=== PATIENT | female | born 1980 | race Caucasian/White ===

== ENCOUNTER 2017-07-20 22:46 | Emergency (ER) | payer MEDICARE, MEDICAID ==
[2017-07-20] MEDS ORDERED: HYDROcodone/Acetaminophen 5/325 mg Tablet ONE (23:09)
[2017-07-20 23:30] LABS: PTT 32.4 SEC (22.9-36.1); Prothrombin Time 14.1 SEC (12.0-14.7)
[2017-07-20 23:36] LABS: Hematocrit 41.5 % (36.0-47.0); Mean Platelet Volume 7.8 fL (7.4-10.4); Neutrophil 29 % (42-75); Red Blood Cell (RBC) Count 4.55 mill/uL (4.20-5.40); White Blood Cell (WBC) Count 6.7 thou/uL (4.8-10.8)
[2017-07-20 23:40] LABS: Anion Gap 17 mmol/L (10-20); BUN (Urea Nitrogen) 12 mg/dL (7.0-18.7); Calc. Creatinine Clearance 0 mL/min (70-130); Carbon Dioxide 19 mmol/L (22-29); Chloride 102 mmol/L (98-107); Estimated GFR-MDRD Greater than 90
[2017-07-21] MEDS ORDERED: Ketorolac Tromethamine 30 MG/ML VIAL ONE (01:18)
--- NOTE | 2017-07-21 09:30 | RAD ---
CHEST 1 VIEW: HISTORY: Dyspnea. DVT. COMPARISON: 05/07/17. FINDINGS: Cardiac silhouette is magnified by projection. Pulmonary vasculature is unremarkable. Lungs remain hyperinflated with mild atelectasis of the right lung base. No lobar consolidation or pneumothorax are apparent. Postoperative changes of the cervicothoracic spine are evident. manager games gamaliel ds overlie the chest. IMPRESSION: Pulmonary hyperinflation and other chronic-type findings appear stable. POS: [facility]
--- NOTE | 2017-07-21 13:21 | ULT ---
PRELIMINARY REPORT/[facility]/EMERGENCY AFTER HOURS PROCEDURE: EXAM: US Duplex Left Lower Extremity Veins CLINICAL HISTORY: 36 years old, female; Signs and symptoms; Swelling of limb; Lower extremity, left TECHNIQUE: Real-time ultrasound scan of the veins of the left lower extremity with color Doppler flow, spectral waveform analysis and compression. COMPARISON: No relevant prior studies available. FINDINGS: Deep veins: Partial thrombosis of the distal popliteal and proximal anterior tibial and thrombosis o f the proximal posterior tibial and peroneal veins. Superficial veins: No acute findings. No thrombus in the visualized great saphenous vein. Soft tissues: Calf edema. IMPRESSION: Deep venous thrombosis in the left popliteal and calf veins. THIS REPORT CONTAINS FINDINGS THAT MAY BE CRITICAL TO PATIENT CARE. The findings were verbally commu nicated via telephone conference with Tete Mejía at 1:01 AM CDT on 07/21/2017. The findings w ere acknowledged and understood. Thank you for allowing us to participate in the care of your patient. Dictated and Authenticated by: Wyatt Schultz MD 07/21/2017 1:03 AM Central Time ([place] \T\ [place]) FINAL REPORT LEFT LOWER EXTREMITY VENOUS DUPLEX SONOGRAM: HISTORY: Left leg pain and edema. FINDINGS: Findings agree with the preliminary report by Dr. Schultz from [facility]. Partially occlusive thrombus is present within the popliteal vein and anterior tibial vein. Good color and spectral Do ppler flow are present within the common femoral vein and greater saphenous junction in the femoral and deep femoral veins. POS: [facility]
== END 2017-07-21 02:12 | disposition short-term general hospital (02) ==
LOC: ERS 22:46
DX: I82.432 Acute embolism and thrombosis of left popliteal vein (principal); F32.9 Major depressive disorder, single episode, unspecified; Z87.891 Personal history of nicotine dependence; Z79.891 Long term (current) use of opiate analgesic; Z79.899 Other long term (current) drug therapy
CPT/HCPCS: 36415; 71010; 80048; 85025; 85379; 85610; 85730; 96374; A4353; J1885

== ENCOUNTER 2017-10-07 20:34 | Emergency (ER) | payer MEDICARE, MEDICAID ==
[2017-10-07] MEDS ORDERED: Ondansetron ODT 4 MG TAB ONE (21:15)
[2017-10-07] MEDS ORDERED: HYDROcodone/Acetaminophen 5/325 mg Tablet ONE (21:15)
[2017-10-07 21:40] LABS: Hematocrit 39.2 % (36.0-47.0); Mean Platelet Volume 7.7 fL (7.4-10.4); Neutrophil 62 % (42-75); Red Blood Cell (RBC) Count 4.28 mill/uL (4.20-5.40); White Blood Cell (WBC) Count 7.3 thou/uL (4.8-10.8)
[2017-10-07 21:44] LABS: ALT (SGPT) 14 U/L (8-55); AST (SGOT) 14 U/L (5-34); Alkaline Phosphatase 67 U/L (40-150); Anion Gap 17 mmol/L (10-20); BUN (Urea Nitrogen) 12 mg/dL (7.0-18.7); Bilirubin, Total 0.6 mg/dL (0.2-1.2); Calc. Creatinine Clearance 0 mL/min (70-130); Calcium 9.8 mg/dL (7.8-10.44); Carbon Dioxide 18 mmol/L (22-29); Chloride 106 mmol/L (98-107); Estimated GFR-MDRD Greater than 90; Globulin 2.8 g/dL (2.4-3.5); Protein, Total 7.1 g/dL (6.0-8.3)
[2017-10-07 22:21] LABS: Bacteria/HPF Rare-Few HPF (None Seen); Bilirubin Small (Negative); Blood, Urine Moderate (Negative); Glucose, Urine (Dipstick) Negative (Negative); Hyaline Casts/LPF 0-3 HYALINE CAST LPF (0-3 Hyaline); Ketone, Urine Trace mg/dL (Negative); Nitrite Negative (Negative); Protein, Urine (Dipstick) 100 mg/dL (Neg-Trace); Renal Epithelial 0-3 HPF (0-3); Squamous Epithelial 0-3 HPF (0-3); Transitional Epithelial 0-3 HPF (0-3)
[2017-10-07] MEDS ORDERED: Fentanyl 100 MCG/2 ML VIAL ONE (23:57)
[2017-10-07] MEDS ORDERED: Sodium Chloride 0.9% 100 ML ONE (23:57)
[2017-10-07] MEDS ORDERED: cefTRIAXone\\ROCEPHIN 1 GM VIAL ONE (23:57)
--- NOTE | 2017-10-08 00:03 | CT ---
CT ANGIOGRAM OF THE ABDOMEN INCLUDING 3D RENDERING: History: 37-year-old female with musculoskeletal disorder, paralyzed from chest down, low blood pressure, abdo daily pain. Patient has a urostomy and colostomy. FINDINGS: The lung bases are clear. Status post cholecystectomy. Liver, pancreas, spleen, and adrenal glands ar e unremarkable. There is some focal opacification within the upper renal collecting systems, this may just represent some early contrast concentration, nonobstructing renal calculi cannot be excluded. T here is a normal appearing abdominal aorta including bifurcation and proximal iliac arteries. There i s an IVC filter noted in place. There is also a vascular stent which appears to involve the left yamilet c vein. Left anterior abdominal wall ostomy site. Foci of minimal subcutaneous increased density and gas noted in the subcutaneous tissues of the lateral abdominal wall bilaterally at the level of the u mbilicus. The etiology of these is uncertain. They may be from prior injection sites. The celiac, sup erior mesenteric artery and inferior mesenteric artery, and renal arteries appear unremarkable. IMPRESSION: Normal appearing abdominal aorta and branches. Status post cholecystectomy without ductal dilatation. There is some increased density in the upper renal collecting systems, either some early contrast co ncentration versus some nonobstructing renal calculi, but no evidence for obstruction. Left iliac venous stent. Left anterior abdominal wall ostomy site. Two foci of increased density and some air de nsity within the anterior subcutaneous fat of the right and left anterior abdominal wall at the level of the umbilicus of uncertain etiology. POS: [facility]
== END 2017-10-08 00:48 | disposition home or self-care (01) ==
LOC: SCSER 20:34
DX: N39.0 Urinary tract infection, site not specified (principal); F32.9 Major depressive disorder, single episode, unspecified
CPT/HCPCS: 36415; 74175; 80053; 81003; 81015; 84703; 85025; 87086; 96365; 96375; J0696; J3010; J7050; Q0162

== ENCOUNTER 2017-10-28 12:39 | Emergency (ER) | payer MEDICARE, MEDICAID ==
[2017-10-28] MEDS ORDERED: Lorazepam 2 MG/ML VIAL ONE (13:58)
[2017-10-28 14:27] LABS: Bilirubin Negative (Negative); Blood, Urine Negative (Negative); Clarity CLEAR (Clear); Glucose, Urine (Dipstick) Negative (Negative); Leukocyte Negative (Negative); Nitrite Negative (Negative); Protein, Urine (Dipstick) 30 mg/dL (Neg-Trace); Specific Gravity, Urine 1.011 (1.002-1.036); Urobilinogen 0.2 mg/dL (0.2-1.0)
[2017-10-28 14:31] LABS: Bacteria/HPF Rare-Few HPF (None Seen); Hyaline Casts/LPF 0-3 HYALINE CAST LPF (0-3 Hyaline); Pathc Cast-AUWi Flag 0.27 (0-2.49); WBC/HPF 0-3 HPF (0-3)
[2017-10-28 14:59] LABS: RBC/HPF 0-3 HPF (0-3); Renal Epithelial 0-3 HPF (0-3); Transitional Epithelial 0-3 HPF (0-3)
== END 2017-10-28 16:10 | disposition home or self-care (01) ==
LOC: ERS 12:39
DX: I10 Essential (primary) hypertension (principal)
CPT/HCPCS: 81003; 81015; 96372; J2060

== ENCOUNTER 2018-05-08 11:30 | Emergency (ER) | payer MEDICARE, MEDICAID ==
[2018-05-08 12:23] LABS: #Basophils 0.1 thou/uL (0.0-0.2); #Eosinphils 0.1 thou/uL (0.0-0.7); #Lymphocytes 2.3 thou/uL (1.20-3.40); #Monocytes 0.4 thou/uL (0.11-0.59); #Neutrophils 3.5 thou/uL (1.40-6.50); %Basophils 1.5 % (0.0-1.0); %Eosinophils 1.6 % (0.0-10.0); %Lymphocytes 36.2 % (21.0-51.0); %Monocytes 5.8 % (0.0-10.0); %Neutrophils 54.9 % (42.0-75.0); Hemoglobin 12.1 g/dL (12.0-16.0); Mean Corpuscular Hemoglobin 29.7 pg (27.0-31.0); Mean Corpuscular Volume 87.4 fL (78.0-98.0); Mean Platelet Volume 9.3 fL (7.4-10.4); Platelet Count 201 thou/uL (130-400); RBC Distribution Width 11.5 % (11.5-14.5); Red Blood Cell (RBC) Count 4.07 mill/uL (4.20-5.40); White Blood Cell (WBC) Count 6.3 thou/uL (4.8-10.8)
[2018-05-08 12:24] LABS: Bilirubin Negative (Negative); Blood, Urine Small (Negative); Clarity Clear (Clear); Glucose, Urine (Dipstick) Negative (Negative); Leukocyte Negative (Negative); Nitrite Negative (Negative); Protein, Urine (Dipstick) 30 mg/dL (Neg-Trace); Specific Gravity, Urine 1.025 (1.005-1.030); Urobilinogen 0.2 mg/dL (0.2-1.0)
[2018-05-08 12:30] LABS: BHCG - Serum Negative (NEGATIVE); Pregs Control Background? CLEAR/WHITE (CLR/WHITE); Pregs Control Bar Appear? YES (CONTROL BAR)
[2018-05-08 12:35] LABS: ALT (SGPT) 17 U/L (8-55); AST (SGOT) 15 U/L (5-34); Albumin 4.4 g/dL (3.5-5.0); Alkaline Phosphatase 70 U/L (40-150); Anion Gap 13 mmol/L (10-20); BUN (Urea Nitrogen) 14 mg/dL (7.0-18.7); Bilirubin, Total 0.5 mg/dL (0.2-1.2); Calc. Creatinine Clearance 0 mL/min (70-130); Carbon Dioxide 25 mmol/L (22-29); Chloride 107 mmol/L (98-107); Estimated GFR-MDRD Greater than 90; Globulin 3.1 g/dL (2.4-3.5); Glucose 75 mg/dL (70-105); Potassium 3.7 mmol/L (3.5-5.1); Protein, Total 7.5 g/dL (6.0-8.3); Sodium 141 mmol/L (136-145)
[2018-05-08 12:44] LABS: WBC/HPF 0-3 HPF (0-3)
[2018-05-08 12:46] LABS: Bacteria/HPF None Seen HPF (None Seen)
[2018-05-08] MEDS ORDERED: Ketorolac Tromethamine 30 MG/ML VIAL ONE (12:49)
--- NOTE | 2018-05-08 14:40 | ULT ---
ULTRSOUND BILATERAL RENAL STANDARD: HISTORY: Suprapubic pain. COMPARISON: None. Kidneys. Real-time, powers scale, and color evaluation of the kidneys was performed. FINDINGS: The right kidney measures 9.6 x 3.4 x 3.6 cm and the left kidney measures 10.4 x 4.7 x 4.9 cm. The u rinary bladder is unable to be visualized. No renal mass, hydronephrosis, or abnormal calcifications . IMPRESSION: Normal examination of the kidneys. No evidence of obstructive uropathy. POS: [facility]
[2018-05-11 20:01] LABS: Chlamydia by PCR Not Detected (NotDetected); GC by PCR Not Detected (NotDetected)
== END 2018-05-08 15:02 | disposition home or self-care (01) ==
LOC: SCSER 11:30
DX: B37.3 Candidiasis of vulva and vagina (principal)
CPT/HCPCS: 36415; 76770; 80053; 81003; 81015; 84703; 85025; 87086; 87480; 87491; 87510; 87591; 87660; 96360; 96361; 96372; J1885

== ENCOUNTER 2018-06-05 10:42 | Inpatient (IN) | payer MEDICARE, MEDICAID ==
[2018-06-05 11:19] LABS: #Basophils 0.1 thou/uL (0.0-0.2); #Eosinphils 0.1 thou/uL (0.0-0.7); #Lymphocytes 2.4 thou/uL (1.20-3.40); #Monocytes 0.5 thou/uL (0.11-0.59); #Neutrophils 5.2 thou/uL (1.40-6.50); %Basophils 1.4 % (0.0-1.0); %Eosinophils 1.1 % (0.0-10.0); %Lymphocytes 28.6 % (21.0-51.0); %Monocytes 6.4 % (0.0-10.0); %Neutrophils 62.6 % (42.0-75.0); Hemoglobin 15.2 g/dL (12.0-16.0); Mean Corpuscular HGB CONC 34.4 g/dL (32.0-36.0); Mean Corpuscular Hemoglobin 29.7 pg (27.0-31.0); Mean Corpuscular Volume 86.4 fL (78.0-98.0); Platelet Count 226 thou/uL (130-400); RBC Distribution Width 11.2 % (11.5-14.5); Red Blood Cell (RBC) Count 5.12 mill/uL (4.20-5.40); White Blood Cell (WBC) Count 8.3 thou/uL (4.8-10.8)
[2018-06-05 11:29] LABS: ALT (SGPT) 46 U/L (8-55); AST (SGOT) 23 U/L (5-34); Albumin 4.9 g/dL (3.5-5.0); Alkaline Phosphatase 90 U/L (40-150); Anion Gap 19 mmol/L (10-20); BUN (Urea Nitrogen) 11 mg/dL (7.0-18.7); Bilirubin, Total 0.4 mg/dL (0.2-1.2); CK (CPK) 189 U/L (29-168); Calc. Creatinine Clearance 0 mL/min (70-130); Calcium 10.4 mg/dL (7.8-10.44); Carbon Dioxide 18 mmol/L (22-29); Chloride 107 mmol/L (98-107); Estimated GFR-MDRD Greater than 90; Globulin 3.6 g/dL (2.4-3.5); Glucose 105 mg/dL (70-105); Lipase 24 U/L (8-78); Potassium 3.7 mmol/L (3.5-5.1); Protein, Total 8.5 g/dL (6.0-8.3); Sodium 140 mmol/L (136-145)
[2018-06-05 11:31] LABS: CKMB 2.1 ng/mL (0-6.6); Troponin I 0.019 ng/mL (< 0.028)
--- NOTE | 2018-06-05 11:33 | RAD ---
CHEST 1 VIEW: Date: 06/05/18 COMPARISON: 07/21/17. HISTORY: Chest pain. FINDINGS: Stable postsurgical change involving the distal cervical and upper thoracic spine. No obvious perihar dware lucency on this single projection. Normal cardiac silhouette. Pulmonary vessels and hilum are n ormal. Costophrenic angles are clear. No mass. No consolidation. No pneumothorax or osseous abnormali ties. IMPRESSION: No acute cardiopulmonary process. POS: [facility]
[2018-06-05 12:36] LABS: Bilirubin Negative (Negative); Blood, Urine Moderate (Negative); Clarity Clear (Clear); Glucose, Urine (Dipstick) Negative (Negative); Leukocyte Negative (Negative); Nitrite Negative (Negative); Protein, Urine (Dipstick) > or equal to 300 mg/dL (Neg-Trace); Specific Gravity, Urine 1.025 (1.005-1.030); Urobilinogen 0.2 mg/dL (0.2-1.0)
[2018-06-05 12:40] LABS: Bacteria/HPF 2+ HPF (None Seen); Squamous Epithelial 0-3 HPF (0-3)
--- NOTE | 2018-06-05 13:52 | CT ---
CT ANGIOGRAM THORAX WITH IV CONTRAST AND 3D RECONSTRUCTIONS: 06/05/2018 HISTORY: Mid sternal and right-sided chest pain. The patient describes the pain as sharp and worse with deep breathing. COMPARISON: 11/12/2016 FINDINGS: The thoracic aorta is normal in caliber without evidence of an aortic dissection. There is suboptima l opacification of the pulmonary arteries, but no filling defect is seen within the central or segmen brandon pulmonary arteries. The subsegmental pulmonary arteries are not well evaluated. There is linear scarring versus atelectasis again present in the right middle lobe, as well as at the right lung bas e. The previously described nodular density in the left lung base, along the major fissure, is again present and measures less than 4 mm. No new pulmonary nodule or mass is seen in the lungs bilateral ly, and there is no pleural effusion. There is a remote fracture involving the lateral left sixth rib. Although this fracture was not seen on the prior exam, it has the appearance of a remote fracture. There are extensive post surgical changes related to posterior fusion of the upper thoracic as well a s lower cervical spine with laminectomy defects involving the lower cervical and upper thoracic spine . A radiopaque catheter is seen within the central spinal canal, which may be related to a pain pump . The visualized upper abdomen has a normal CT appearance for the arterial phase of imaging. IMPRESSION: 1. No evidence of a pulmonary embolus involving the central or segmental pulmonary arteries. 2. Scattered linear areas of scarring and/or atelectasis in the right middle lobe and lingula. 3. Areas likely related to mild nodular pleural thickening involving the lower portions of each judy r fissure. 4. Post surgical changes of the cervical and thoracic spine. POS: [facility]
[2018-06-05] MEDS ORDERED: Ketorolac Tromethamine 30 MG/ML VIAL ONE (13:56)
[2018-06-05] MEDS ORDERED: Nitroglycerin 0.4 MG TAB (25 Tab Bottle) SL PRN (18:15)
[2018-06-05] MEDS ORDERED: cloNIDine 0.1 MG TAB PO PRN (18:15)
[2018-06-05] MEDS ORDERED: Ondansetron ODT 4 MG TAB PO PRN (18:15)
[2018-06-05] MEDS ORDERED: hydrALAZINE 20 MG/ML VIAL SLOW IVP PRN (18:15)
[2018-06-05] MEDS ORDERED: Ondansetron HCl/PF 4 MG/2 ML Vial IVP PRN (18:15)
[2018-06-05] MEDS ORDERED: Famotidine 20 MG TAB PO SCH (21:00)
[2018-06-05] MEDS: Estrogens, Conjugated 30 GM TUBE VAG SCH (21:03)
[2018-06-05] MEDS: Pregabalin 50 MG CAP PO SCH (21:10)
[2018-06-05] MEDS: Oxybutynin 5 MG TAB PO SCH (21:12)
[2018-06-05 21:42] LABS: Troponin I 0.801 ng/mL (< 0.028)
--- NOTE | 2018-06-05 22:20 | PDOC.EVN ---
Event Note - Event Note Event Note: dw bedside nsg pt's elev trop pt on full ac w/ arixtra, will continue continue to trend trop
[2018-06-05] MEDS ORDERED: Zolpidem Tartrate 5 MG TAB PO SCH (23:15)
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
[2018-06-06 01:18] LABS: Band 3 % (5-11); Eosinophils 1 % (0-10); Hemoglobin 12.6 g/dL (12.0-16.0); Lymphocytes 39 % (21-51); MDiff Complete? YES; Mean Corpuscular HGB CONC 32.9 g/dL (32.0-36.0); Mean Corpuscular Hemoglobin 30.7 pg (27.0-31.0); Mean Corpuscular Volume 93.1 fL (78.0-98.0); Mean Platelet Volume 8.9 fL (7.4-10.4); Monocytes 5 % (0-10); Neutrophil 52 % (42-75); PLT Morphology Comment Appears Adequate; Platelet Count 195 thou/uL (130-400); Red Blood Cell (RBC) Count 4.12 mill/uL (4.20-5.40); White Blood Cell (WBC) Count 6.8 thou/uL (4.8-10.8)
[2018-06-06 01:33] LABS: Anion Gap 16 mmol/L (10-20); BUN (Urea Nitrogen) 18 mg/dL (7.0-18.7); Calc. Creatinine Clearance 126 mL/min (70-130); Calcium 9.4 mg/dL (7.8-10.44); Carbon Dioxide 23 mmol/L (22-29); Cardiac Risk 5.8 (Less than 4.5); Chloride 102 mmol/L (98-107); Cholesterol 214 mg/dl (< 200 Desired); Estimated GFR-MDRD Greater than 90; Glucose 70 mg/dL (70-105); HDL Cholesterol 37 mg/dL (>60 Neg Risk); LDL Cholesterol, Calculated 154 mg/dL; Potassium 3.9 mmol/L (3.5-5.1); Sodium 137 mmol/L (136-145); Triglycerides 117 mg/dL (Less than 150)
[2018-06-06 01:36] LABS: Troponin I 0.573 ng/mL (< 0.028)
[2018-06-06] MEDS: Acetaminophen 500 MG TAB PO PRN ×2 (01:44→18:26)
[2018-06-06] MEDS ORDERED: Aspirin 325 MG TAB PO SCH (09:00)
[2018-06-06] MEDS: DULoxetine 60 MG CAP PO SCH (10:55)
[2018-06-06] MEDS: Oxybutynin 5 MG TAB PO SCH ×2 (10:56→21:06)
[2018-06-06] MEDS: Pregabalin 50 MG CAP PO SCH ×2 (10:56→21:07)
[2018-06-06] MEDS: Aspirin 81 mg Enteric Coated Tablet PO SCH (10:56)
[2018-06-06] MEDS: Bupropion 150 MG XL TAB PO SCH (10:56)
[2018-06-06] MEDS: Midodrine HCl 5 MG TAB PO SCH ×3 (10:56→21:06)
--- NOTE | 2018-06-06 11:06 | CT ---
CT ABDOMEN AND PELVIS WITH IV CONTRAST: Date: 06/06/18 Multiple axial tomograms obtained through the abdomen and pelvis with IV enhancement. Oral contrast w as administered. INDICATION: Abdominal pain. Paraplegia. Ostomy. There is a history of colostomy placement, cholecystectomy, and b ladder calculus. Comparison made to recent CT abdomen and pelvis dated 05/16/18. FINDINGS: Lung bases are clear. Liver, spleen, and pancreas are unremarkable. Adrenal glands are normal. Kidneys unremarkable with symmetric function. Urinary bladder is poorly distended, but appears unremarkable as visualized. Small bowel loops show nonspecific distention without dilatation. No evidence of small bowel obstruct ion. Evaluation of the colon reveals prominent stool throughout the colon. There is evidence of a double b arrel type colostomy in the left lower quadrant. The rectum and sigmoid are decompressed, but appear to lead to this ostomy, as does the descending colon. There is an IVC filter in place. Abdominal aorta is unremarkable. A left iliac vein stent is again no alf. Uterus and adnexa appear unremarkable. No acute osseous abnormality. There is a radiopaque catheter which appears to enter just inferior to the umbilicus in the midline w ith the tip just beyond the peritoneum in the upper aspect of the abdominal cavity in the lower abdom en/upper pelvis. This tip does not enter the bladder; however, it appears to be within a well-defined tract leading to the anterior bladder wall and may represent a percutaneous cystostomy catheter. Thi s was not present on the recent exam of 05/16/18. IMPRESSION: 1. No evidence of acute intra-abdominal process. No significant change from the recent CT of 8. 2. There is a new percutaneous catheter entering the midline of the lower abdomen/upper pelvis which appears to reside within a tract leading to the anterior bladder wall. This catheter does not reside within the bladder lumen as described above. POS: [facility]
[2018-06-06 13:39] LABS: CKMB 2.8 ng/mL (0-6.6)
--- NOTE | 2018-06-06 15:23 | PDOC.PN ---
- Subjective Encounter Start Date: 06/06/18 Encounter Start Time: 15:20 Subjective: f/u for abd/chest pain with elevated Trop I. c/o persistent abd -: pain apparently more R-sided. Using pain pump and receiving Morphine -: Sulfate IV. No fever/chills. - Objective Resuscitation Status: Resuscitation Status FULL:Full Resuscitation MAR Reviewed: Yes Vital Signs & Weight: Vital Signs (12 hours) Temp Pulse Resp BP BP Pulse Ox 06/06/18 12:00 98.2 F 80 16 129/79 99 06/06/18 08:00 98.9 F 104 H 18 139/99 H 100 06/06/18 04:00 89 91/64 06/06/18 03:45 97.9 F 96 17 98 Weight Admit Weight 149 lb 12.8 oz Weight 149 lb 12.8 oz I&O: 06/05/18 06/06/18 06/07/18 06:59 06:59 06:59 Intake Total 251 Output Total 150 Balance 101 Result Diagrams: 06/06/18 00:46 06/06/18 00:46 Additional Labs: Microbiology 06/06/18 04:34 Stool - Soft Stool Occult Blood ([facility]) - Final 06/06/18 04:34 Stool - Soft Campylobacter Antigen Assay - Final 06/06/18 04:34 Stool - Soft Shiga Toxin Test - Final 06/06/18 04:34 Stool - Formed Stool Lactoferrin - Final 06/05/18 04:34 Stool C. difficile GDH Antigen & Toxins - Final 06/06/18 04:34 Stool - Soft Stool Culture - Preliminary Laboratory Tests 06/05/18 06/05/18 06/05/18 11:00 14:20 20:53 Troponin I 0.019 0.690 H* 0.801 H* Triglycerides Cholesterol LDL Cholesterol, Calc HDL Cholesterol 06/06/18 06/06/18 00:46 00:46 Troponin I 0.573 H* Triglycerides 117 Cholesterol 214 H LDL Cholesterol, Calc 154 HDL Cholesterol 37 Radiology Reviewed by me: Yes (CT abd/pel - no acute process) EKG Reviewed by me: Yes (Tele - SR) Phys Exam - Physical Examination Constitutional: NAD HEENT: PERRLA, sclera anicteric, oral pharynx no lesions Neck: no nodes, no JVD, supple, full ROM Respiratory: no wheezing, no rales, no rhonchi, clear to auscultation bilateral S1, S2 Cardiovascular: RRR, no significant murmur, no rub, gallop + colostomy in place SPT in place Gastrointestinal: soft, non-tender, no distention, positive bowel sounds mild LE edema Musculoskeletal: pulses present moves UE's + paraplegia Psychiatric: normal affect, A&O x 3 Skin: no rash, normal turgor, cap refill <2 seconds Dx/Plan (1) Abdominal pain Code(s): R10.9 - UNSPECIFIED ABDOMINAL PAIN Status: Acute Qualifiers: Abdominal location: generalized Qualified Code(s): R10.84 - Generalized abdominal pain Comment: Etiology unclear, CT abd/pel negative currently, continue Morphine Sulfate, Pain pump 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 demand ischemia, 2D echo pending, Cardiology consultation, ASA 81mg daily (3) Urinary tract infection Status: Acute Comment: Suspected, continue Rocephin 2gm IV daily, await final Ucx results (4) Chronic pain syndrome Code(s): G89.4 - CHRONIC PAIN SYNDROME Status: Chronic Comment: Subq Pain pump with Dilaudid (5) Paraplegia Code(s): G82.20 - PARAPLEGIA, UNSPECIFIED Status: Chronic Comment: Turning protocol - Plan continue antibiotics, PT/OT, psychosocial rehabilitation counselor, DVT proph w/SCDs Stable overall -: Await 2D echo results -: Continue ASA 81mg daily -: Pain control with Morphine Sulfate IV -: Check CTA abd/pel given hx of prior intraabdominal thrombosis * X-rays of T, L-spine
[2018-06-06] MEDS: Silver Sulfadiazine 1% Cream 50 GM TUBE TP SCH (15:36)
--- NOTE | 2018-06-06 20:25 | RAD ---
THREE VIEWS THORACIC SPINE 06/06/18 HISTORY: Paraplegia. FINDINGS: Postsurgical changes related to posterior fusion of the cervicothoracic spine are present. Laminectom y defects are seen involving the lower cervical spine as well as upper thoracic spine. No definite sheehan rdware complication is appreciated on this exam. Vertebral body heights are within normal limits, and no fracture or subluxation is appreciated. Findings are overall unchanged compared to views of the t horacic spine on 05/25/10. IMPRESSION: 1. Postsurgical changes of the lower cervical and upper thoracic spine. 2. No fracture or subluxation involving the thoracic spine. 3. Mild right convex curvature thoracic spine. 4. Surgical clips overlie right upper quadrant with IVC filter also overlying the right aspect o f the abdomen. 5. Area of increased density in the right upper quadrant incompletely imaged. This could be micheal factual, but this is incompletely imaged or evaluated on this exam. POS: [facility]
--- NOTE | 2018-06-06 20:29 | RAD ---
THREE VIEWS LUMBAR SPINE 06/06/18 HISTORY: Paraplegia. COMPARISON: None available. FINDINGS: There is residual contrast seen throughout the visualized colon. There is a vascular stent overlying the left iliac vessels likely related to iliac vein stent. An IVC filter is seen to the right of midl ine at the L2-3 level. Surgical clips overlie the right upper quadrant. There is partial visualizatio n of a power pack device overlying the right lateral abdomen. A radiopaque catheter overlies the midl ine of the pelvis, which may be related to suprapubic catheter. The residual contrast in the colon does limit osseous detail of the lumbar spine primarily on the la teral projection. However, the vertebral body heights are within normal limits and there is no evide nce of a subluxation. No obvious fracture is delineated. IMPRESSION: 1. No obvious fracture involving the lumbar spine, although portions of the lumbar spine on late ral view are obscured due to overlying residual contrast in the colon. 2. Incidental findings as described above. POS: [facility]
[2018-06-06] MEDS: Estrogens, Conjugated 30 GM TUBE VAG SCH (21:05)
[2018-06-06] MEDS: Zolpidem Tartrate 5 MG TAB PO SCH (21:06)
[2018-06-06] MEDS: FONDAPARINUX SODIUM SC SCH (21:50)
[2018-06-06] MEDS: PRE FILLED SC SCH (21:50)
[2018-06-07] MEDS: Oxybutynin 5 MG TAB PO SCH ×2 (10:14→20:29)
[2018-06-07] MEDS: Midodrine HCl 5 MG TAB PO SCH ×3 (10:14→20:28)
[2018-06-07] MEDS: Bupropion 150 MG XL TAB PO SCH (10:14)
[2018-06-07] MEDS: DULoxetine 60 MG CAP PO SCH (10:14)
[2018-06-07] MEDS: Pregabalin 50 MG CAP PO SCH ×2 (10:15→20:29)
[2018-06-07] MEDS: Aspirin 81 mg Enteric Coated Tablet PO SCH (10:15)
[2018-06-07] MEDS: Silver Sulfadiazine 1% Cream 50 GM TUBE TP SCH (10:16)
--- NOTE | 2018-06-07 10:53 | CT ---
CTA AORTOGRAM ABDOMEN AND PELVIS WITH CONTRAST: Multiple axial tomograms obtained through the abdomen and pelvis following aortogram protocol with mu ltiplanar reconstruction. INDICATION: Abdominal pain. COMPARISON: Comparison is made to yesterday's CT of 06/06/18. FINDINGS: Lung bases remain clear. Liver, spleen, pancreas, adrenal glands, and kidneys remain unremarkable. Abdominal aorta is unremar kable. There is no evidence of dissection or aortic thrombus. Aortic branches including superior me senteric artery, celiac artery, renal arteries, and inferior mesenteric arteries all appear unremarka ble. Aortic bifurcation is patent and unremarkable. An IVC filter is noted in place. There is no evidence of inferior vena cava dilatation. IVC thrombu s cannot be assessed on this exam. A left iliac vein stent is again noted and patency of this stent cannot be ascertained on this study. The small bowel loops show nonspecific distention. There is a double-barrel colostomy in the left ab domen that is described on yesterday's exam with sigmoid colon pulled into the ostomy as well as left colon. There is a large amount of stool in a dilated right colon and transverse colon. The cecum lies deep within the pelvis and is filled with stool. The tip of the percutaneous bladder catheter does not reside within the bladder lumen. There is a tr act which extends to the bladder wall and this catheter resides within this tract. The urinary bladd er is not significantly distended. IMPRESSION: 1. No significant change from yesterday. 2. Abdominal aorta is unremarkable. 3. A large amount of stool in the right colon. The cecum lies low in the pelvis and is distended wi th stool. Double-barrel colostomy in the left abdomen is noted. 4. The tip of the percutaneous bladder catheter does not reside within the bladder lumen. The above findings were discussed with Dr. Hernandez. CODE CR POS: [facility]
[2018-06-07] MEDS: HYDROcodone/Acetaminophen 10/325 mg Tablet PO PRN ×2 (11:51→23:40)
[2018-06-07] MEDS ORDERED: Polyethylene Glycol 3350 17 GM Packet PO SCH (12:15)
[2018-06-07] MEDS ORDERED: Metoclopramide HCl 10 MG/2 ML VIAL IVP PRN (15:02)
[2018-06-07] MEDS ORDERED: GoLYTELY 4,000 ml Bottle PO SCH (15:15)
--- NOTE | 2018-06-07 19:29 | PDOC.PN ---
- Subjective Encounter Start Date: 06/07/18 Encounter Start Time: 13:00 Subjective: f/u for abd pain of unclear etiology. States some R-sided pain. No fever -: or chills. No colostomy output currently. - Objective Resuscitation Status: Resuscitation Status FULL:Full Resuscitation MAR Reviewed: Yes Vital Signs & Weight: Vital Signs (12 hours) Temp Pulse Resp BP Pulse Ox 06/07/18 08:00 98.3 F 90 16 100 06/07/18 07:34 98.3 F 90 16 181/99 H 100 Weight Admit Weight 149 lb 12.8 oz Weight 147 lb 6.4 oz I&O: 06/06/18 06/07/18 06/08/18 06:59 06:59 06:59 Intake Total 251 680 Output Total 150 3101 Balance 101 -2421 Result Diagrams: 06/06/18 00:46 06/06/18 00:46 Additional Labs: Microbiology 06/06/18 04:34 Stool - Soft Stool Occult Blood (CLIFTON) - Final 06/06/18 04:34 Stool - Soft Campylobacter Antigen Assay - Final 06/06/18 04:34 Stool - Soft Shiga Toxin Test - Final 06/06/18 04:34 Stool - Formed Stool Lactoferrin - Final 06/05/18 04:34 Stool C. difficile GDH Antigen & Toxins - Final 06/06/18 04:34 Stool - Soft Stool Culture - Preliminary Laboratory Tests 06/05/18 06/05/18 06/05/18 11:00 14:20 20:53 Troponin I 0.019 0.690 H* 0.801 H* Triglycerides Cholesterol LDL Cholesterol, Calc HDL Cholesterol 06/06/18 06/06/18 00:46 00:46 Troponin I 0.573 H* Triglycerides 117 Cholesterol 214 H LDL Cholesterol, Calc 154 HDL Cholesterol 37 Radiology Reviewed by me: Yes (CTA abd - negative, T-/L-spine X-rays -no acute process) EKG Reviewed by me: Yes (Tele - SR) Phys Exam - Physical Examination Constitutional: NAD HEENT: PERRLA, sclera anicteric, oral pharynx no lesions Neck: no nodes, no JVD, supple, full ROM Respiratory: no wheezing, no rales, no rhonchi, clear to auscultation bilateral S1, S2 Cardiovascular: RRR, no significant murmur, no rub, gallop + colostomy, + SPT in place Gastrointestinal: soft, positive bowel sounds mild peripheral edema Musculoskeletal: pulses present + paraplegia Psychiatric: normal affect, A&O x 3 Skin: no rash, normal turgor, cap refill <2 seconds Dx/Plan (1) Abdominal pain Code(s): R10.9 - UNSPECIFIED ABDOMINAL PAIN Status: Acute Qualifiers: Abdominal location: generalized Qualified Code(s): R10.84 - Generalized abdominal pain Comment: Etiology unclear, CT abd/pel negative currently, continue Morphine Sulfate, Pain pump [employer] subq, consider GI evaluation, bowel regimen (2) Elevated troponin I level Code(s): R74.8 - ABNORMAL LEVELS OF OTHER SERUM ENZYMES Status: Acute Comment: ? demand ischemia, 2D echo pending, Cardiology consultation, ASA 81mg daily, Cardiolite stress test in am (3) Urinary tract infection Status: Acute Comment: Suspected, continue Rocephin 2gm IV daily, await final Ucx results (4) Chronic pain syndrome Code(s): G89.4 - CHRONIC PAIN SYNDROME Status: Chronic Comment: Subq Pain pump with Dilaudid (5) Paraplegia Code(s): G82.20 - PARAPLEGIA, UNSPECIFIED Status: Chronic Comment: Turning protocol (6) Constipation Code(s): K59.00 - CONSTIPATION, UNSPECIFIED Status: Chronic Qualifiers: Constipation type: slow transit constipation Qualified Code(s): K59.01 - Slow transit constipation Comment: Bowel regimen, GI consult - Plan continue antibiotics, social work program coordinator Stable overall -: Continue aggressive bowel regimen -: Monitor for colostomy output -: Continue Arixtra daily -: Cardiolite Stress Test in am * KUB in am
[2018-06-07] MEDS: Zolpidem Tartrate 5 MG TAB PO SCH (20:29)
[2018-06-07] MEDS: Estrogens, Conjugated 30 GM TUBE VAG SCH (20:31)
[2018-06-07] MEDS ORDERED: PRE FILLED SC SCH (23:45)
[2018-06-07] MEDS ORDERED: FONDAPARINUX SODIUM SC SCH (23:45)
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
[2018-06-08] MEDS: FONDAPARINUX SODIUM SC SCH (07:58)
[2018-06-08] MEDS: PRE FILLED SC SCH (07:58)
[2018-06-08] MEDS: HYDROcodone/Acetaminophen 10/325 mg Tablet PO PRN ×2 (08:48→20:03)
[2018-06-08] MEDS: Pregabalin 50 MG CAP PO SCH ×2 (08:49→20:13)
[2018-06-08] MEDS: DULoxetine 60 MG CAP PO SCH (08:50)
[2018-06-08] MEDS: Bupropion 150 MG XL TAB PO SCH (08:50)
[2018-06-08] MEDS: Oxybutynin 5 MG TAB PO SCH ×2 (08:50→20:13)
[2018-06-08] MEDS: Aspirin 81 mg Enteric Coated Tablet PO SCH (08:50)
[2018-06-08] MEDS: NORETHINDRONE ACETATE 5 MG PO SCH (08:50)
[2018-06-08] MEDS: Silver Sulfadiazine 1% Cream 50 GM TUBE TP SCH (08:53)
[2018-06-08] MEDS: Midodrine HCl 5 MG TAB PO SCH ×4 (08:53→21:35)
[2018-06-08] MEDS ORDERED: Regadenoson 0.4 MG/5 ML SYRINGE ONE (10:44)
[2018-06-08] MEDS: Polyethylene Glycol 3350 17 GM Packet PO SCH (13:33)
[2018-06-08] MEDS: Acetaminophen 500 MG TAB PO PRN (14:49)
--- NOTE | 2018-06-08 15:20 | NM ---
MYOCARDIAL PERFUSION SCAN: The patient was given 10 mCi of Technetium sestamibi for resting imaging and 27 mCi for stress imagin g. The patient was stressed according to LexiScan protocol. INDICATION: Chest pain. FINDINGS: There is normal activity throughout the left ventricle on stress and rest images. No evidence of rev ersible ischemia. The wall motion appears preserved. Ejection fraction is recorded at 60%. IMPRESSION: No evidence of reversible ischemia. POS: [facility]
[2018-06-08 17:17] LABS: #Eosinphils 0.1 thou/uL (0.0-0.7); #Lymphocytes 2.5 thou/uL (1.20-3.40); #Monocytes 0.4 thou/uL (0.11-0.59); #Neutrophils 6.4 thou/uL (1.40-6.50); %Basophils 0.5 % (0.0-1.0); %Eosinophils 1.3 % (0.0-10.0); %Lymphocytes 26.5 % (21.0-51.0); %Monocytes 4.2 % (0.0-10.0); %Neutrophils 67.5 % (42.0-75.0); Hemoglobin 13.6 g/dL (12.0-16.0); Mean Corpuscular HGB CONC 34.3 g/dL (32.0-36.0); Mean Corpuscular Hemoglobin 31.7 pg (27.0-31.0); Mean Corpuscular Volume 92.3 fL (78.0-98.0); Mean Platelet Volume 8.3 fL (7.4-10.4); Platelet Count 208 thou/uL (130-400); RBC Distribution Width 11.9 % (11.5-14.5); Red Blood Cell (RBC) Count 4.29 mill/uL (4.20-5.40); White Blood Cell (WBC) Count 9.5 thou/uL (4.8-10.8)
[2018-06-08 17:36] LABS: Anion Gap 11 mmol/L (10-20); BUN (Urea Nitrogen) 14 mg/dL (7.0-18.7); Calc. Creatinine Clearance 153 mL/min (70-130); Calcium 9.5 mg/dL (7.8-10.44); Carbon Dioxide 25 mmol/L (22-29); Chloride 104 mmol/L (98-107); Estimated GFR-MDRD Greater than 90; Glucose 101 mg/dL (70-105); Potassium 3.5 mmol/L (3.5-5.1); Sodium 136 mmol/L (136-145)
--- NOTE | 2018-06-08 18:36 | PDOC.PN ---
- Subjective Encounter Start Date: 06/08/18 Encounter Start Time: 18:20 Subjective: f/u for abd pain with constipation. Taking Golytely currently but feels -: full. No significant output through colostomy. 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 - Objective Resuscitation Status: Resuscitation Status FULL:Full Resuscitation MAR Reviewed: Yes Vital Signs & Weight: Weight Admit Weight 149 lb 12.8 oz Weight 145 lb 8 oz I&O: 06/07/18 06/08/18 06/09/18 06:59 06:59 06:59 Intake Total 680 224 Output Total 3101 2700 Balance -9903 -3812 Result Diagrams: 06/08/18 16:58 06/08/18 16:58 Additional Labs: Microbiology 06/06/18 04:34 Stool - Soft Stool Occult Blood ([facility]) - Final 06/06/18 04:34 Stool - Soft Campylobacter Antigen Assay - Final 06/06/18 04:34 Stool - Soft Shiga Toxin Test - Final 06/06/18 04:34 Stool - Formed Stool Lactoferrin - Final 06/05/18 04:34 Stool C. difficile GDH Antigen & Toxins - Final 06/06/18 04:34 Stool - Soft Stool Culture - Preliminary Laboratory Tests 06/05/18 06/05/18 06/05/18 11:00 14:20 20:53 Troponin I 0.019 0.690 H* 0.801 H* Triglycerides Cholesterol LDL Cholesterol, Calc HDL Cholesterol 06/06/18 06/06/18 00:46 00:46 Troponin I 0.573 H* Triglycerides 117 Cholesterol 214 H LDL Cholesterol, Calc 154 HDL Cholesterol 37 Radiology Reviewed by me: Yes (PAINT ROLLER COVER MACHINE SETTER - no reversible ischemia, EF 60%) EKG Reviewed by me: Yes (Tele - SR) Phys Exam - Physical Examination Constitutional: NAD HEENT: PERRLA, sclera anicteric, oral pharynx no lesions Neck: no nodes, no JVD, supple, full ROM Respiratory: no wheezing, no rales, no rhonchi, clear to auscultation bilateral S1, S2 Cardiovascular: RRR, no significant murmur, no rub, gallop mild distention + colostomy Gastrointestinal: soft, non-tender, positive bowel sounds Musculoskeletal: no edema, pulses present Psychiatric: normal affect, A&O x 3 Skin: no rash, normal turgor, cap refill <2 seconds Dx/Plan (1) Abdominal pain Code(s): R10.9 - UNSPECIFIED ABDOMINAL PAIN Status: Acute Qualifiers: Abdominal location: generalized Qualified Code(s): R10.84 - Generalized abdominal pain Comment: Etiology likely related to constipation, CT abd/pel negative except for large retained stool, continue Morphine Sulfate, Pain pump FLIGHT SUPERINTENDENT subq, bowel regimen (2) Elevated troponin I level Code(s): R74.8 - ABNORMAL LEVELS OF OTHER SERUM ENZYMES Status: Acute Comment: ? demand ischemia, 2D echo normal, Cardiology consultation, ASA 81mg daily, Cardiolite stress test negative (3) Urinary tract infection Status: Acute Comment: Suspected, convert Levaquin 500mg po daily (4) Chronic pain syndrome Code(s): G89.4 - CHRONIC PAIN SYNDROME Status: Chronic Comment: Subq Pain pump with Dilaudid (5) Paraplegia Code(s): G82.20 - PARAPLEGIA, UNSPECIFIED Status: Chronic Comment: Turning protocol (6) Constipation Code(s): K59.00 - CONSTIPATION, UNSPECIFIED Status: Chronic Qualifiers: Constipation type: slow transit constipation Qualified Code(s): K59.01 - Slow transit constipation Comment: Bowel regimen, GI consult, Golytely - Plan plan discussed w/ family, continue antibiotics Stable overall -: Continue bowel regimen, Golytely -: Change Levaquin po -: Continue Arixtra -: Continue Protonix 40mg po daily * KUB in am
--- NOTE | 2018-06-08 19:20 | PRG ---
DATE OF SERVICE: 06/08/2018 SUBJECTIVE: Ms. Mccray apparently only drank one glass of the GoLYTELY last evening. Today, she had a stress test. This was reportedly normal. She states she has been started drinking the GoLYTELY now. OBJECTIVE: VITAL SIGNS: Temperature 98, pulse 125. ABDOMEN: Full. LABORATORY DATA: No labs. ASSESSMENT: Severe obstipation, right-sided abdominal pain, more tachycardic in the past 12-24 hours, repeat her labs and any signs of free air or worsening features of labs, surgical consultation will be considered. She has a massive amount of stool in the right colon. MTDD
[2018-06-08] MEDS: Estrogens, Conjugated 30 GM TUBE VAG SCH (20:14)
[2018-06-08] MEDS ORDERED: PRE FILLED SC SCH (21:00)
[2018-06-08] MEDS ORDERED: FONDAPARINUX SODIUM SC SCH (21:00)
[2018-06-08] MEDS: Zolpidem Tartrate 5 MG TAB PO SCH (23:04)
[2018-06-09] MEDS: Acetaminophen 500 MG TAB PO PRN ×2 (07:38→15:55)
--- NOTE | 2018-06-09 08:12 | RAD ---
TWO VIEWS OF THE ABDOMEN: INDICATION: History of colon impaction. COMPARISON: CTA of the abdomen and pelvis dated 06/07/18. FINDINGS: There is a nonspecific bowel gas pattern. There is contrast opacification overlying the left mid abd omen likely related to evacuated barium contrast within the patient's left lower quadrant ostomy. No large amount of retained stool is evident. There is endograft stent overlying the pelvis. Percutan eous bladder catheter overlying the midline. There is a pain pump generator overlying the right lowe r quadrant of the abdomen. IVC filter is seen at the L3 vertebral level. Surgical clips are within the right upper quadrant. IMPRESSION: No large amount of retained stool within the colon. POS: [facility]
[2018-06-09] MEDS: Polyethylene Glycol 3350 17 GM Packet PO SCH (09:23)
[2018-06-09] MEDS: Pregabalin 50 MG CAP PO SCH ×2 (09:24→20:41)
[2018-06-09] MEDS: Midodrine HCl 5 MG TAB PO SCH ×3 (09:25→20:55)
[2018-06-09] MEDS: HYDROcodone/Acetaminophen 10/325 mg Tablet PO PRN ×2 (09:25→21:26)
[2018-06-09] MEDS: Aspirin 81 mg Enteric Coated Tablet PO SCH (09:26)
[2018-06-09] MEDS: Bupropion 150 MG XL TAB PO SCH (09:26)
[2018-06-09] MEDS: Oxybutynin 5 MG TAB PO SCH ×2 (09:26→20:41)
[2018-06-09] MEDS: DULoxetine 60 MG CAP PO SCH (09:26)
[2018-06-09] MEDS: Silver Sulfadiazine 1% Cream 50 GM TUBE TP SCH (09:27)
[2018-06-09] MEDS: NORETHINDRONE ACETATE 5 MG PO SCH (09:27)
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
[2018-06-09 13:52] VITALS: BMI 25.7
--- NOTE | 2018-06-09 16:45 | PDOC.PN ---
- Subjective Encounter Start Date: 06/09/18 Encounter Start Time: 16:20 Subjective: f/u for constipation in context of chronic opiates, neurgenic bowel -: and abd pain. States mild output of colostomy other than liquid consistency -: and abd pain. - Objective Resuscitation Status: Resuscitation Status FULL:Full Resuscitation MAR Reviewed: Yes Vital Signs & Weight: Vital Signs (12 hours) Temp Pulse Resp BP Pulse Ox 06/09/18 16:00 98.6 F 101 H 18 101/58 L 06/09/18 12:00 98 F 107 H 18 132/82 06/09/18 07:55 99.2 F 119 H 16 95 06/09/18 07:54 99.2 F 119 H 16 135/82 100 Weight Admit Weight 149 lb 12.8 oz Weight 145 lb 8 oz I&O: 06/08/18 06/09/18 06/10/18 06:59 06:59 06:59 Intake Total 224 370 Output Total 2700 1750 Balance -6826 -2280 Result Diagrams: 06/08/18 16:58 06/08/18 16:58 Additional Labs: Microbiology 06/06/18 04:34 Stool - Soft Stool Occult Blood ([facility]) - Final 06/06/18 04:34 Stool - Soft Campylobacter Antigen Assay - Final 06/06/18 04:34 Stool - Soft Shiga Toxin Test - Final 06/06/18 04:34 Stool - Formed Stool Lactoferrin - Final 06/05/18 04:34 Stool C. difficile GDH Antigen & Toxins - Final 06/06/18 04:34 Stool - Soft Stool Culture - Preliminary Laboratory Tests 06/05/18 06/05/18 06/05/18 11:00 14:20 20:53 Troponin I 0.019 0.690 H* 0.801 H* Triglycerides Cholesterol LDL Cholesterol, Calc HDL Cholesterol 06/06/18 06/06/18 00:46 00:46 Troponin I 0.573 H* Triglycerides 117 Cholesterol 214 H LDL Cholesterol, Calc 154 HDL Cholesterol 37 Radiology Reviewed by me: Yes (KUB - nl bowel gas pattern, decreased stool content per Radiology) EKG Reviewed by me: Yes (Tele - SR in 90's) Phys Exam - Physical Examination Constitutional: NAD HEENT: PERRLA, sclera anicteric, oral pharynx no lesions Neck: no nodes, no JVD, supple, full ROM Respiratory: no wheezing, no rales, no rhonchi, clear to auscultation bilateral S1, S2 Cardiovascular: RRR, no significant murmur, no rub, gallop mild distention + colostomy Gastrointestinal: soft, positive bowel sounds Musculoskeletal: no edema, pulses present Psychiatric: normal affect, A&O x 3 Skin: no rash, normal turgor, cap refill <2 seconds Dx/Plan (1) Abdominal pain Code(s): R10.9 - UNSPECIFIED ABDOMINAL PAIN Status: Acute Qualifiers: Abdominal location: generalized Qualified Code(s): R10.84 - Generalized abdominal pain Comment: Etiology likely related to constipation, CT abd/pel negative except for large retained stool, continue Morphine Sulfate, 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 demand ischemia, 2D echo normal, Cardiology consultation, ASA 81mg daily, Cardiolite stress test negative (3) Urinary tract infection Status: Acute Comment: Suspected, convert Levaquin 500mg po daily (4) Chronic pain syndrome Code(s): G89.4 - CHRONIC PAIN SYNDROME Status: Chronic Comment: Subq Pain pump with Dilaudid (5) Paraplegia Code(s): G82.20 - PARAPLEGIA, UNSPECIFIED Status: Chronic Comment: Turning protocol (6) Constipation Code(s): K59.00 - CONSTIPATION, UNSPECIFIED Status: Chronic Qualifiers: Constipation type: slow transit constipation Qualified Code(s): K59.01 - Slow transit constipation Comment: Bowel regimen, GI consult, Golytely - Plan social work administrator Stable overall -: Continue Miralas, Colace -: Levaquin 500mg po daily -: Repeat CT abd/pel in am to confirm resolving constipation -: GI consult for oupt planning * Likely home in 24h
[2018-06-09] MEDS ORDERED: Polyethylene Glycol 3350 17 GM Packet PO SCH (18:30)
[2018-06-09] MEDS ORDERED: Methylnaltrexone 12 MG/0.6 ML VIAL SC SCH ×2 (18:30→20:00)
--- NOTE | 2018-06-09 18:50 | PRG ---
DATE OF SERVICE: 06/09/2018 SUBJECTIVE: Ms. Mccray states that she finished an entire gallon of GoLYTELY over the past couple of d ays, finishing today. Through all of this, she reports only one equivalent of bowel movement having to change her colostomy bag only once. This was soft stool, but really not liquidy. No blood in the bag. Her generalized abdominal pain persists. Despite having only minimal output after the gallon of GoLYTELY, she did have an abdominal x-ray this morning which did not appear to show as much stool in the colon, though this is comparing with a prior CT scan. OBJECTIVE: VITAL SIGNS: Temperature 98.6, pulse 101, blood pressure 101/58, 95% oxygen saturation on room air. GENERAL: No acute distress. HEART: Regular rate and rhythm. LUNGS: Clear to auscultation bilaterally. ABDOMEN: Soft, bowel sounds hypoactive. Mild generalized tenderness to palpation, left lower quadra nt colostomy bag in place. Minimal stool in the bag. EXTREMITIES: No peripheral edema. LABORATORY STUDIES: No new labs from today. From yesterday, WBC 9.5, hemoglobin 13.6, platelets 208 . Sodium 136, potassium 3.5, BUN 14, creatinine 0.53. ASSESSMENT AND PLAN: 1. Opioid-induced constipation (OIC). 2. Neurogenic bowel. 3. Generalized abdominal pain, appears secondary to the above. The patient reports she has had only minimal stool output despite drinking a full gallon of GoLYTELY yesterday. I agree with plan for CT scan tomorrow morning to reassess. She is requesting repeat equivalent of bowel prep, but something other than GoLYTELY. I am ordering 255 grams of MiraLax to be administered in 64 ounces of clear li quids. She can take her time with this, but she go ahead and get started. In the longer term, it would be best if we can get her on specific treatment for opioid-induced const ipation. Recall that she had experienced significant side effects with Movantik including worsening of a full body pain in the recent past. The other option would be Relistor (methylnaltrexone). Hope fully, this is something we will be able to get her on as an outpatient. The oral form is not on our inpatient formulary. I have ordered a 12 mg subcutaneous injection, though. Please call anytime with questions. We will continue to follow along.
[2018-06-09] MEDS: Estrogens, Conjugated 30 GM TUBE VAG SCH ×2 (20:39→21:06)
[2018-06-09] MEDS: Zolpidem Tartrate 5 MG TAB PO SCH (20:42)
[2018-06-09] MEDS ORDERED: Fondaparinux Sodium 2.5 MG/0.5 ML SYRINGE SC SCH ×2 (21:00→22:15)
[2018-06-09] MEDS ORDERED: Morphine 4 MG/ML VIAL SLOW IVP SCH (23:45)
[2018-06-10] MEDS: Acetaminophen 500 MG TAB PO PRN (00:48)
[2018-06-10 07:32] VITALS: TEMP 98.6
[2018-06-10] MEDS: DULoxetine 60 MG CAP PO SCH (08:55)
[2018-06-10] MEDS: Midodrine HCl 5 MG TAB PO SCH ×2 (08:55→14:14)
[2018-06-10] MEDS: Aspirin 81 mg Enteric Coated Tablet PO SCH (08:55)
[2018-06-10] MEDS: Bupropion 150 MG XL TAB PO SCH (08:55)
[2018-06-10] MEDS: Oxybutynin 5 MG TAB PO SCH (08:56)
[2018-06-10] MEDS: Polyethylene Glycol 3350 17 GM Packet PO SCH (08:56)
[2018-06-10] MEDS: Pregabalin 50 MG CAP PO SCH (08:56)
[2018-06-10] MEDS: NORETHINDRONE ACETATE 5 MG PO SCH (08:56)
[2018-06-10] MEDS: Silver Sulfadiazine 1% Cream 50 GM TUBE TP SCH (08:57)
--- NOTE | 2018-06-10 10:29 | CT ---
CT ABDOMEN AND PELVIS WITH IV CONTRAST: INDICATION: Extreme abdominal pain and constipation FINDINGS: There is a diverting loop colostomy involving the left mid abdomen, without evidence of obstruction o r parastomal hernia. There is a suprapubic bladder catheter in place. There is an IVC filter seen within the infrarenal IVC. There is an intravascular stent within the le ft common iliac vein. The gallbladder is surgically absent. There is a pain pump generator overlyin g the right lower quadrant of the abdomen. The lung bases demonstrate mild subsegmental volume loss. No focal hepatic lesion is evident. The p ancreas, adrenal glands, and spleen appear within normal limits. The kidneys are normal appearing. No free fluid or enlarged lymph nodes are evident. The small bowel is of normal caliber. There is f luid density seen within the colon. No free fluid is evident. There is diffuse osteopenia involving the visualized skeletal structures. No definite acute osseous abnormality is evident. IMPRESSION: 1. Fluid density seen within the colon can be seen with diarrheal states or enemas. 2. Previously seen prominent amount of stool within the right hemicolon on the comparison computed t omography angiography of the abdomen has been evacuated in the interval. POS: [facility]
--- NOTE | 2018-06-10 11:19 | PQF ---
CLINICAL DOCUMENTATION IMPROVEMENT CLARIFICATION FORM: ICD-10 Updated PLEASE DO AN ADDENDUM TO THE PROGRESS NOTE WITH ANY DOCUMENTATION UPDATES OR ADDITIONS AND CARRY THROUGH TO DC SUMMARY. THANK YOU. DATE: 06/10/18 ATTN: Dr. Hernandez Please exercise your independent, professional judgment in responding to the clarification form. Clinical indicators are provided on the bottom of this form for your review Please check appropriate box(s): AMI TYPE: [ ] NSTEMI [ ] AMI Type II [ ] Demand ischemia [ ] Other diagnosis [ x ] Unable to determine In addition, please specify: Present on Admission (POA): [ ] Yes [ ] No [ x ] Unable to determine CLINICAL INDICATORS - SIGNS / SYMPTOMS / LABS 06/05 @1100 @1420 @20506/06 LAB: TROPONIN I 0.019 0.690 0.801 0.573 CARDIOLOGY CONSULT 06/06: ELEVATED TROPONIN I: HOWEVER, NORMAL CK AND CK-MB PN 06/09: CONSTIPATION IN CONTEXT OF CHRONIC OPIATES, NEUROGENIC BOWEL & ABD PAIN. ELEVATED TROPONIN I LEVEL. ? DEMAND ISCHEMIA, 2D ECHO NORMAL , ... CARDIOLITE STRESS TEST NEGATIVE. 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 S/P COLOSTOMY, S/P SUPRAPUBIC; S/P IVC FILTER PLACEMENT, S/P PAIN PUMP PLACEMENT. PARAPLEGIA. CHRONIC PAIN SYNDROME. UTI. HX OF MULTIPLE DVT'S. TREATMENT: CARDIOLOGY CONSULT CPOE 06/05 ASPIRIN 81MG PO DAILY Thank you, Pao (This form is maintained as a part of the permanent medical record) 2014 [employer]. All Rights Reserved Pao Hooker RN, BSN [email or web address] Office: [phone] [facility] SYSTEM[facility]and[facility]
[2018-06-10] MEDS: HYDROcodone/Acetaminophen 10/325 mg Tablet PO PRN (12:44)
[2018-06-10 15:45] VITALS: BP 110/62
--- NOTE | 2018-06-10 15:49 | DIS ---
DATE OF ADMISSION: 06/05/2018 DATE OF DISCHARGE: 06/10/2018 DISCHARGE DIAGNOSES: 1. Abdominal pain, generalized, unclear etiology. 2. Opiate-induced constipation, improved. 3. Neurogenic bowel. 4. Elevated troponin I with negative Cardiolite stress testing. 5. Urinary tract infection suspected, no organism identified. 6. Chronic pain syndrome. 7. Paraplegia. CONSULTATIONS: Dr. Pereira and Bairon with GI Service. Dr. Josue with Cardiology Service. PERTINENT LABORATORY DATA AND IMAGING DATA: Basic metabolic profile within normal limits. Troponin I ranged between 0.019-0.80, total cholesterol 214, triglycerides 117, HDL 37, LDL 154. LFTs within normal limits. Lipase 24. CBC showed white blood cell count ranging between 6.8-9.5 and hemoglobin 14. C. difficile antigen and toxin dated 06/05/2018 negative. Stool lactoferrin dated 06/06/2018 ne gative. Stool Hemoccult dated 06/06/2018 negative. Stool culture dated 06/06/2018 showed normal ent jennifer lucia. Portable chest x-ray dated 06/05/2018 showed no acute cardiopulmonary process. CT angio gram of the chest dated 06/05/2018 showed no evidence of pulmonary embolus, bibasilar atelectasis. P ost-surgical changes of the cervical and thoracic spine noted. CT of the abdomen and pelvis dated showed no evidence of acute intra-abdominal process. Prominent stool throughout the colon. Lumbar spine radiographs dated 06/06/2018 showed no fracture or acute process. Thoracic spine radio graphs dated 06/06/2018 showed no acute process. Chronic changes noted. A 2D transthoracic echocard iogram dated 06/06/2018 showed ejection fraction 55%-60%. Diastolic dysfunction. CT angiogram of th e abdomen and pelvis dated 06/07/2018 showed large amount of stool and a dilated right colon and pinzon sverse colon. Abdominal radiographs dated 06/09/2018 showed no large amount of retained stool in the colon. CT of the abdomen and pelvis dated 06/10/2018 showed interval resolution of retained stool. HOSPITAL COURSE: Patient was admitted to the telemetry unit after initially presenting with abdomina l pain. The patient underwent extensive evaluation with multiple imaging modalities and metabolic wo rkup with initial elevated troponin I. The patient underwent cardiac evaluation including Cardiolite stress testing after evaluation by the Cardiology Service. The patient underwent stress testing viri wing no evidence for reversible or fixed ischemia with calculated ejection fraction of 60%. The pia ent underwent extensive intraabdominal evaluation showing prominent stool in the right colon on initi al CT imaging. The patient was given multiple bowel regimens including MiraLax, magnesium citrate an d GoLYTELY with overall evacuation of previously retained stool. Patient continued to complain of ab dominal discomfort of unclear etiology. The patient continued her regular pain regimen with mild rel ief. The patient was treated for suspected urinary tract infection with Levaquin; however, no specif ic organism was identified. The patient did receive Relistor at the recommendation of the GI Service ; however, due to side effects and increased pain after taking the medication, patient decided not to pursue continuation of this regimen. Overall, patient did remain clinically stable on the telemetry unit with telemetry monitoring showing evidence of intermittent tachycardia with heart rates ranging in the 90s to low one-teens. The patient remained afebrile throughout the hospital course with stab le vital signs. I have examined and discussed followup instructions with the patient at the time of discharge. The patient overall clinically stable and ready for discharge on 06/10/2018. DISCHARGE MEDICATIONS: 1. Wellbutrin-XL 450 mg p.o. daily. 2. Cymbalta 120 mg p.o. daily. 3. Arixtra 7.5 mg subcutaneously daily. 4. Rexford 10/325 mg 1 tab p.o. t.i.d. p.r.n. 5. Midodrine 10 mg p.o. t.i.d. 6. Norethindrone 25 mg p.o. daily. 7. Oxybutynin chloride 5 mg p.o. b.i.d. 8. Protonix 40 mg p.o. daily. 9. Lyrica 100 mg p.o. b.i.d. 10. Conjugated estrogens cream 1 gram vaginally at bedtime. 11. Amitiza 24 mcg p.o. b.i.d. 12. MiraLax 17 grams p.o. t.i.d. FOLLOWUP: The patient may follow up with her primary care provider, Dr. Ziyad Corbin in [place], [place] within 7 days of discharge. CONDITION ON DISCHARGE: Stable. ACTIVITY: Ad savita. DIET: Regular. CODE STATUS: FULL. DISPOSITION: Home 06/10/2018. Total time preparing and coordinating discharge is 40 minutes.
[2018-06-10] MEDS ORDERED: FONDAPARINUX SODIUM SC SCH (21:00)
[2018-06-10] MEDS ORDERED: PRE FILLED SC SCH (21:00)
--- NOTE | 2018-06-11 11:12 | EKG ---
Test Reason : CHEST PAIN' Blood Pressure : / mmHG Vent. Rate : 071 BPM Atrial Rate : 071 BPM P-R Int : 126 ms QRS Dur : 088 ms QT Int : 398 ms P-R-T Axes : -27 062 071 degrees QTc Int : 432 ms Normal sinus rhythm Septal infarct , age undetermined Abnormal ECG Confirmed by BHAVANI OWENS ([id number]), greeting card editor ANJANA NIETO ([id number]) on 06/11/2018 11:11:58 AM Referred By: Lakshmi OWENS Confirmed By:BHAVANI OWENS
== END 2018-06-10 17:45 | disposition home or self-care (01) | DRG 392 ==
LOC: SCSER 10:42 → 2NO 13:48 → OBSVTOIN 06-06 09:55
PROVIDERS: ADMIT Internal Medicine; ATTEND Internal Medicine
DX: K59.03 Drug induced constipation (principal); N39.0 Urinary tract infection, site not specified; G82.20 Paraplegia, unspecified; T40.605A Adverse effect of unspecified narcotics, initial encounter; N31.9 Neuromuscular dysfunction of bladder, unspecified; G89.4 Chronic pain syndrome; R74.8 Abnormal levels of other serum enzymes; R00.0 Tachycardia, unspecified; Z86.718 Personal history of other venous thrombosis and embolism
CPT/HCPCS: 36415; 71045; 71275; 72072; 72100; 74018; 74174; 74177; 78452; 80048; 80053; 80061; 81003; 81015; 82274; 82550; 82553; 83630; 83690; 84484; 85007; 85025; 85027; 85379; 87045; 87046; 87324; 87449; 87899; 93005; 93306; 94760; A4216; A9500; J0360; J1652; J1885; J1956; J2270; J2785; Q0162

== ENCOUNTER 2019-04-07 11:33 | Outpatient (CLI) | payer MEDICARE, MEDICAID ==
--- NOTE | 2019-04-07 13:45 | MRI ---
MRI Lower Ext Jt Rt hip WO Con HISTORY: Patient complains of right hip and leg pain. Patient is paralyzed from the waist down. COMPARISON: None. FINDINGS: The pelvic ring is intact without evidence of fracture. Visualized intrapelvic contents do not show any masses or fluid collections. Small [id number] images of the right hip and there are no definitive signs of any hip labral injur y. There is no signs of any insufficiency-type fractures or evidence for a vascular necrosis. The gluteus minimus and medius tendons are intact there is no signs of a trochanteric bursitis. Gener alized muscle atrophy is noted. IMPRESSION: No acute findings. No signs any stress type fracture avascular necrosis or soft tissue ma sses. Generalized muscle atrophy.
--- NOTE | 2019-04-07 13:52 | MRI ---
MRI Lower Ext No Jt Rt WO Con HISTORY: Right hip and femur pain. Patient is paralyzed from the waist down. COMPARISON: MRI of hip and pelvis done earlier. FINDINGS: Marked generalized muscle atrophy is noted. The marrow signal change within the femur is no rmal. No signs of any marrow edema. No soft tissue mass is visualized. No fluid collections. IMPRESSION: Generalized muscle atrophy. Otherwise unremarkable exam.
== END 2019-04-07 11:34 | disposition home or self-care (01) ==
LOC: MRI 11:33
PROVIDERS: ATTEND Anesthesiology
DX: M25.551 Pain in right hip (principal); M62.561 Muscle wasting and atrophy, not elsewhere classified, right lower leg

== ENCOUNTER 2019-06-05 11:10 | Outpatient (CLI) | payer MEDICARE, OTHER | END 2019-06-05 11:11 | disposition home or self-care (01) | PROVIDERS: ATTEND Family Medicine | DX: G82.21 Paraplegia, complete (principal) ==

== ENCOUNTER 2019-06-23 13:18 | Outpatient (CLI) | payer MEDICARE, OTHER ==
--- NOTE | 2019-06-23 13:44 | RAD ---
EXAM: Two views chest PROVIDED CLINICAL HISTORY: Chest congestion and shortness of breath. Chest pain with inspiration. COMPARISON: 06/05/2019. FINDINGS: Cardiac silhouette and pulmonary vasculature are within normal limits. The lungs are clear. Postsurg ical changes related to posterior fusion of the cervicothoracic spine are again noted. Chest is stable compared to prior study. IMPRESSION: No acute cardiopulmonary process.
== END 2019-06-23 13:19 | disposition home or self-care (01) ==
LOC: BICRAD 13:18
PROVIDERS: ATTEND Family Medicine
DX: R09.89 Other specified symptoms and signs involving the circulatory and respiratory systems (principal)
CPT/HCPCS: 71046

== ENCOUNTER 2021-03-30 18:41 | Emergency (ER) | payer MEDICARE, MEDICAID ==
[2021-03-30 20:16] LABS: #Basophils 0.1 thou/uL (0.0-0.2); #Eosinphils 0.1 thou/uL (0.0-0.7); #Lymphocytes 2.4 thou/uL (1.20-3.40); #Monocytes 0.5 thou/uL (0.11-0.59); %Basophils 0.6 % (0.0-1.0); %Eosinophils 1.1 % (0.0-10.0); %Lymphocytes 26.3 % (21.0-51.0); %Monocytes 5.7 % (0.0-10.0); %Neutrophils 66.3 % (42.0-75.0); Hemoglobin 12.1 g/dL (12.0-16.0); Mean Corpuscular HGB CONC 33.9 g/dL (32.0-36.0); Mean Corpuscular Hemoglobin 29.4 pg (27.0-31.0); Mean Corpuscular Volume 86.8 fL (78.0-98.0); Platelet Count 294 thou/uL (130-400); Red Blood Cell (RBC) Count 4.12 mill/uL (4.20-5.40); White Blood Cell (WBC) Count 9.1 thou/uL (4.8-10.8)
[2021-03-30 20:29] LABS: ALT (SGPT) 39 U/L (8-55); AST (SGOT) 26 U/L (5-34); Albumin 4.1 g/dL (3.5-5.0); Alkaline Phosphatase 70 U/L (40-110); Anion Gap 16 mmol/L (10-20); BUN (Urea Nitrogen) 8 mg/dL (7.0-18.7); Bilirubin, Total 0.6 mg/dL (0.2-1.2); Calc. Creatinine Clearance 0 mL/min (70-130); Calcium 9.4 mg/dL (7.8-10.44); Carbon Dioxide 19 mmol/L (22-29); Chloride 107 mmol/L (98-107); Globulin 3.4 g/dL (2.4-3.5); Glucose 79 mg/dL (70-105); Potassium 4.2 mmol/L (3.5-5.1); Protein, Total 7.5 g/dL (6.0-8.3); Sodium 138 mmol/L (136-145)
== END 2021-03-30 20:00 | disposition home or self-care (01) ==
LOC: ERS 18:41
DX: J32.0 Chronic maxillary sinusitis (principal); Z86.73 Personal history of transient ischemic attack (TIA), and cerebral infarction without residual deficits
CPT/HCPCS: 36415; 70450; 80053; 82140; 85025

== ENCOUNTER 2021-06-16 12:40 | Outpatient (CLI) | payer MEDICARE, MEDICAID ==
[2021-06-17 21:36] LABS: SARS-CoV-2 PCR by NAA Not Detected (NotDetected)
== END 2021-06-16 12:41 | disposition home or self-care (01) ==
LOC: LABBT 12:40
PROVIDERS: ATTEND Internal Medicine
DX: Z01.812 Encounter for preprocedural laboratory examination (principal); K59.2 Neurogenic bowel, not elsewhere classified; R14.0 Abdominal distension (gaseous); K21.9 Gastro-esophageal reflux disease without esophagitis; R11.0 Nausea; T40.2X5A Adverse effect of other opioids, initial encounter; K59.03 Drug induced constipation; Z20.822 Contact with and (suspected) exposure to COVID-19
CPT/HCPCS: U0003; U0005

== ENCOUNTER 2021-06-21 08:16 | Day surgery (SDC) | payer MEDICARE, MEDICAID ==
[2021-06-20 10:56] VITALS: BMI 26.5
[2021-06-21] MEDS ORDERED: PROPOFOL 200 MG/20 ML VIAL ONE (10:01)
[2021-06-21] MEDS ORDERED: Lidocaine 1% PF 5 ML VIAL ONE (10:01)
== END 2021-06-21 11:15 | disposition home or self-care (01) ==
LOC: SDC 08:16
PROVIDERS: ATTEND Internal Medicine
PROC: 0DJ08ZZ Inspection of Upper Intestinal Tract, Via Natural or Artificial Opening Endoscopic (ICD-10-PCS; principal; 2021-06-21)
PROC: 0DJD8ZZ Inspection of Lower Intestinal Tract, Via Natural or Artificial Opening Endoscopic (ICD-10-PCS; 2021-06-21)
DX: K59.2 Neurogenic bowel, not elsewhere classified (principal); K21.9 Gastro-esophageal reflux disease without esophagitis; R10.84 Generalized abdominal pain; R14.0 Abdominal distension (gaseous); R11.0 Nausea; K59.03 Drug induced constipation; T40.2X5A Adverse effect of other opioids, initial encounter; Z79.82 Long term (current) use of aspirin; Z79.899 Other long term (current) drug therapy; Z88.1 Allergy status to other antibiotic agents; Z93.3 Colostomy status
CPT/HCPCS: J2704

== ENCOUNTER 2021-10-02 11:52 | Emergency (ER) | payer MEDICARE, MEDICAID ==
[2021-10-02] MEDS ORDERED: HYDROcodone/Acetaminophen 10/325 mg Tablet ONE (12:43)
== END 2021-10-02 15:00 | disposition home or self-care (01) ==
LOC: ERS 11:52
DX: I82.5Z2 Chronic embolism and thrombosis of unspecified deep veins of left distal lower extremity (principal); Z79.01 Long term (current) use of anticoagulants
CPT/HCPCS: 99283

== ENCOUNTER 2021-10-20 10:42 | Outpatient (CLI) | payer MEDICARE, MEDICAID | END 2021-10-20 10:43 | disposition home or self-care (01) | LOC: ULT 10:42 | PROVIDERS: ATTEND Internal Medicine Hematology & Oncology | DX: I82.512 Chronic embolism and thrombosis of left femoral vein (principal); I82.5Y2 Chronic embolism and thrombosis of unspecified deep veins of left proximal lower extremity ==

== ENCOUNTER 2021-11-29 19:10 | Inpatient (IN) | payer MEDICARE, MEDICAID ==
[2021-11-29] MEDS ORDERED: Ondansetron PF 4 MG/2 ML Vial ONE ×2 (19:47→21:21)
[2021-11-29] MEDS ORDERED: Ketorolac Tromethamine 30 MG/ML VIAL ONE (19:47)
[2021-11-29] MEDS ORDERED: Acetaminophen 500 MG TAB ONE (19:47)
[2021-11-29 20:09] LABS: Hemoglobin 9.4 g/dL (12.0-16.0); Mean Corpuscular HGB CONC 32.3 g/dL (32.0-36.0); Mean Corpuscular Hemoglobin 25.4 pg (27.0-31.0); Mean Corpuscular Volume 78.5 fL (78.0-98.0); Platelet Count 339 thou/uL (130-400); RBC Distribution Width 16.7 % (11.5-14.5); Red Blood Cell (RBC) Count 3.71 mill/uL (4.20-5.40); White Blood Cell (WBC) Count 11.3 thou/uL (4.8-10.8)
[2021-11-29 20:25] LABS: ALT (SGPT) 20 U/L (8-55); AST (SGOT) 33 U/L (5-34); Albumin 3.5 g/dL (3.5-5.0); Alkaline Phosphatase 107 U/L (40-110); Anion Gap 14 mmol/L (10-20); Anisocytosis SLIGHT = 6-15 cells (100X) (0-5/hpf); BUN (Urea Nitrogen) 9 mg/dL (7.0-18.7); Band 9 % (5-11); Bilirubin, Total 0.5 mg/dL (0.2-1.2); Calc. Creatinine Clearance 0 mL/min (70-130); Calcium 8.4 mg/dL (7.8-10.44); Carbon Dioxide 22 mmol/L (22-29); Chloride 99 mmol/L (98-107); Globulin 3.2 g/dL (2.4-3.5); Glucose 97 mg/dL (70-105); Lymphocytes 8 % (21-51); MDiff Complete? YES; Monocytes 1 % (0-10); Neutrophil 80 % (42-75); Platelet Morphology Comment Appears Adequate; Polychromasia SLIGHT = 2-3 cells (100X) (0-2/hpf); Potassium 3.3 mmol/L (3.5-5.1); Protein, Total 6.7 g/dL (6.0-8.3); Reactive Lymphocytes 1 % (0-10); Sodium 132 mmol/L (136-145)
[2021-11-29 21:03] LABS: Bacteria/HPF None Seen HPF (None Seen); Bilirubin Negative (Negative); Blood, Urine 1+ (Negative); Clarity Clear (Clear); Glucose, Urine (Dipstick) Normal (Negative); Ketone, Urine Trace mg/dL (Negative); Leukocyte 25 Leu/uL (Negative); Nitrite Negative (Negative); Protein, Urine (Dipstick) Negative (Neg-Trace); RBC/HPF 0-3 HPF (0-3); Specific Gravity, Urine 1.002 (1.002-1.036); Squamous Epithelial 0-3 HPF (0-3); Urobilinogen Normal mg/dL (Less than 2); WBC/HPF 0-3 HPF (0-3); pH, Urine 6.5 (5.0-9.0)
[2021-11-29 21:50] LABS: SARS-CoV-2 NAA Rapid Test Not Detected (NotDetected)
[2021-11-29] MEDS ORDERED: HYDROcodone/Acetaminophen 10/325 mg Tablet ONE (22:34)
[2021-11-30] MEDS ORDERED: Ondansetron ODT 4 MG TAB PO PRN (01:03)
[2021-11-30] MEDS ORDERED: Acetaminophen 650 MG Suppository PR PRN (01:03)
[2021-11-30] MEDS ORDERED: Potassium Chloride 20 MEQ TAB PO SCH (02:30)
[2021-11-30] MEDS ORDERED: Piperacillin/Tazobactam 3.375 GM in Sodium Chloride 0.9% 100 ML IVPB SCH ×2 (02:30→03:00)
[2021-11-30] MEDS ORDERED: VANCOMYCIN 1.25 GM/250 ML BAG 1.25 GM in Premix Bag 1 BAG IVPB SCH (02:39)
[2021-11-30] MEDS: Sodium Chloride 0.9% 1,000 ML IV SCH ×3 (03:01→21:23)
[2021-11-30] MEDS ORDERED: Baclofen 10 MG TAB PO SCH (03:15)
[2021-11-30] MEDS ORDERED: Amitriptyline HCl 10 MG TAB PO SCH (03:15)
[2021-11-30] MEDS ORDERED: Zolpidem Tartrate 5 MG TAB PO SCH (03:15)
[2021-11-30 04:31] LABS: #Eosinphils 0.1 thou/uL (0.0-0.7); #Lymphocytes 0.9 thou/uL (1.20-3.40); #Monocytes 0.4 thou/uL (0.11-0.59); %Basophils 0.2 % (0.0-1.0); %Eosinophils 0.9 % (0.0-10.0); %Monocytes 5.1 % (0.0-10.0); %Neutrophils 81.7 % (42.0-75.0); Hemoglobin 8.7 g/dL (12.0-16.0); Mean Corpuscular HGB CONC 32.2 g/dL (32.0-36.0); Mean Corpuscular Hemoglobin 25.9 pg (27.0-31.0); Mean Corpuscular Volume 80.3 fL (78.0-98.0); Mean Platelet Volume 7.6 fL (7.4-10.4); Platelet Count 302 thou/uL (130-400); RBC Distribution Width 16.5 % (11.5-14.5); Red Blood Cell (RBC) Count 3.38 mill/uL (4.20-5.40); White Blood Cell (WBC) Count 7.3 thou/uL (4.8-10.8)
[2021-11-30 04:36] LABS: Phosphorus 3.2 mg/dL (2.3-4.7)
[2021-11-30 04:37] LABS: Anion Gap 9 mmol/L (10-20); BUN (Urea Nitrogen) 6 mg/dL (7.0-18.7); Calc. Creatinine Clearance 0 mL/min (70-130); Calcium 8.6 mg/dL (7.8-10.44); Carbon Dioxide 27 mmol/L (22-29); Chloride 103 mmol/L (98-107); Glucose 83 mg/dL (70-105); Sodium 136 mmol/L (136-145)
[2021-11-30] MEDS: Vancomycin HCl 1.25 GM in Sodium Chloride 0.9% 250 ML 250 ML IVPB SCH ×2 (04:37→16:43)
[2021-11-30 04:38] LABS: Magnesium 2.2 mg/dL (1.6-2.6)
[2021-11-30 07:49] LABS: Pregnancy Test - Urine (BHCG) Negative (Negative); Pregu Control Background? CLEAR/WHITE (CLR/WHITE); Pregu Control Bar Appear? YES (CONTROL BAR); Specific Gravity 1.002 (1.002-1.036)
[2021-11-30] MEDS: Acetaminophen 325 MG TAB PO PRN ×2 (08:17→15:31)
[2021-11-30] MEDS: Piperacillin/Tazobactam 3.375 GM in Sodium Chloride 0.9% 100 ML IVPB SCH ×3 (08:20→22:14)
[2021-11-30] MEDS: DULoxetine 60 MG CAP PO SCH (08:21)
[2021-11-30] MEDS: Floranex 1 GM Packet PO SCH (08:21)
[2021-11-30] MEDS: Trospium 20 MG TAB PO SCH ×2 (08:21→20:04)
[2021-11-30] MEDS: Enoxaparin Sodium 40 MG/0.4 ML SYRINGE SC SCH (08:22)
[2021-11-30] MEDS ORDERED: Iopamidol 370 76% 100 ML VIAL ONE (08:58)
[2021-11-30] MEDS: Ondansetron PF 4 MG/2 ML Vial IVP PRN (10:07)
[2021-11-30] MEDS: Midodrine HCl 5 MG TAB PO SCH ×3 (10:12→20:03)
[2021-11-30] MEDS: HYDROcodone/Acetaminophen 10/325 mg Tablet PO PRN ×2 (10:42→20:05)
[2021-11-30] MEDS: Baclofen 10 MG TAB PO SCH (20:03)
[2021-11-30] MEDS: Amitriptyline HCl 10 MG TAB PO SCH (20:03)
[2021-11-30] MEDS: Zolpidem Tartrate 5 MG TAB PO SCH (20:04)
[2021-11-30] MEDS: Pregabalin 50 MG CAP PO SCH (20:49)
[2021-11-30] MEDS ORDERED: hydrOXYzine 10 MG TAB PO SCH (22:00)
[2021-12-01] MEDS: Sodium Chloride 0.9% 1,000 ML IV SCH ×2 (03:14→10:32)
[2021-12-01] MEDS: Vancomycin HCl 1.25 GM in Sodium Chloride 0.9% 250 ML 250 ML IVPB SCH ×2 (03:15→16:48)
[2021-12-01] MEDS: Piperacillin/Tazobactam 3.375 GM in Sodium Chloride 0.9% 100 ML IVPB SCH ×3 (06:23→22:01)
[2021-12-01] MEDS: Acetaminophen 325 MG TAB PO PRN (06:36)
[2021-12-01] MEDS: Midodrine HCl 5 MG TAB PO SCH ×3 (08:31→20:39)
[2021-12-01] MEDS: Floranex 1 GM Packet PO SCH (08:31)
[2021-12-01] MEDS: Trospium 20 MG TAB PO SCH ×2 (08:31→20:41)
[2021-12-01] MEDS: DULoxetine 60 MG CAP PO SCH (08:31)
[2021-12-01] MEDS: Enoxaparin Sodium 40 MG/0.4 ML SYRINGE SC SCH (08:32)
[2021-12-01 09:00] LABS: #Eosinphils 0.1 thou/uL (0.0-0.7); #Lymphocytes 1.1 thou/uL (1.20-3.40); #Monocytes 0.3 thou/uL (0.11-0.59); #Neutrophils 4.5 thou/uL (1.40-6.50); %Basophils 0.5 % (0.0-1.0); %Eosinophils 1.5 % (0.0-10.0); %Lymphocytes 17.7 % (21.0-51.0); %Monocytes 5.5 % (0.0-10.0); %Neutrophils 74.8 % (42.0-75.0); Mean Corpuscular Hemoglobin 25.1 pg (27.0-31.0); Mean Platelet Volume 8.5 fL (7.4-10.4); Platelet Count 265 thou/uL (130-400); RBC Distribution Width 16.6 % (11.5-14.5); Red Blood Cell (RBC) Count 3.19 mill/uL (4.20-5.40)
[2021-12-01 09:24] LABS: Anion Gap 14 mmol/L (10-20); BUN (Urea Nitrogen) 7 mg/dL (7.0-18.7); Calc. Creatinine Clearance 0 mL/min (70-130); Calcium 8.3 mg/dL (7.8-10.44); Carbon Dioxide 23 mmol/L (22-29); Chloride 102 mmol/L (98-107); Glucose 81 mg/dL (70-105); Potassium 3.1 mmol/L (3.5-5.1); Sodium 136 mmol/L (136-145)
[2021-12-01] MEDS ORDERED: Iopamidol 370 76% 100 ML VIAL ONE (09:29)
[2021-12-01] MEDS: HYDROcodone/Acetaminophen 10/325 mg Tablet PO PRN ×3 (09:33→21:56)
[2021-12-01] MEDS ORDERED: Rivaroxaban 15 MG TAB PO SCH (09:45)
[2021-12-01] MEDS ORDERED: Bupropion 150 MG SR TAB PO SCH (09:45)
[2021-12-01 15:46] LABS: Hemoglobin 8.2 g/dL (12.0-16.0)
[2021-12-01 16:09] LABS: Vancomycin, Trough 10.9 ug/mL
[2021-12-01] MEDS: Baclofen 10 MG TAB PO SCH (20:39)
[2021-12-01] MEDS: Amitriptyline HCl 10 MG TAB PO SCH (20:39)
[2021-12-01] MEDS: Pregabalin 50 MG CAP PO SCH (20:40)
[2021-12-01] MEDS: Rivaroxaban 15 MG TAB PO SCH (20:41)
[2021-12-01] MEDS: Zolpidem Tartrate 5 MG TAB PO SCH (20:41)
[2021-12-02] MEDS: Vancomycin 1 GM in Premix Bag 1 BAG IVPB SCH ×2 (00:29→08:19)
[2021-12-02 05:41] LABS: #Eosinphils 0.2 thou/uL (0.0-0.7); #Lymphocytes 1.5 thou/uL (1.20-3.40); #Monocytes 0.3 thou/uL (0.11-0.59); #Neutrophils 4.1 thou/uL (1.40-6.50); %Basophils 0.2 % (0.0-1.0); %Eosinophils 2.6 % (0.0-10.0); %Lymphocytes 24.7 % (21.0-51.0); %Monocytes 4.9 % (0.0-10.0); %Neutrophils 67.6 % (42.0-75.0); Hemoglobin 7.8 g/dL (12.0-16.0); Mean Corpuscular HGB CONC 31.3 g/dL (32.0-36.0); Mean Corpuscular Hemoglobin 25.6 pg (27.0-31.0); Mean Corpuscular Volume 81.7 fL (78.0-98.0); Mean Platelet Volume 8.2 fL (7.4-10.4); Platelet Count 307 thou/uL (130-400); RBC Distribution Width 16.8 % (11.5-14.5); Red Blood Cell (RBC) Count 3.04 mill/uL (4.20-5.40); White Blood Cell (WBC) Count 6.1 thou/uL (4.8-10.8)
[2021-12-02] MEDS: Piperacillin/Tazobactam 3.375 GM in Sodium Chloride 0.9% 100 ML IVPB SCH ×3 (06:03→23:32)
[2021-12-02 06:07] LABS: Anion Gap 10 mmol/L (10-20); BUN (Urea Nitrogen) 8 mg/dL (7.0-18.7); Calc. Creatinine Clearance 0 mL/min (70-130); Calcium 8.7 mg/dL (7.8-10.44); Carbon Dioxide 28 mmol/L (22-29); Chloride 105 mmol/L (98-107); Glucose 85 mg/dL (70-105); Potassium 3.6 mmol/L (3.5-5.1); Sodium 139 mmol/L (136-145)
[2021-12-02] MEDS: Sodium Chloride 0.9% 1,000 ML IV SCH ×2 (06:08→08:20)
[2021-12-02] MEDS: DULoxetine 60 MG CAP PO SCH (08:20)
[2021-12-02] MEDS: Bupropion 150 MG XL TAB PO SCH (08:20)
[2021-12-02] MEDS: Senokot S 8.6-50 MG TAB PO SCH (08:21)
[2021-12-02] MEDS: Midodrine HCl 5 MG TAB PO SCH ×3 (08:21→20:25)
[2021-12-02] MEDS: Rivaroxaban 15 MG TAB PO SCH ×2 (08:21→20:25)
[2021-12-02] MEDS: Aspirin Chewable 81 MG TAB PO SCH (08:21)
[2021-12-02] MEDS: Floranex 1 GM Packet PO SCH (08:21)
[2021-12-02] MEDS: Trospium 20 MG TAB PO SCH ×2 (08:21→20:25)
[2021-12-02] MEDS ORDERED: Aspirin 81 mg Enteric Coated Tablet PO SCH (09:00)
[2021-12-02] MEDS ORDERED: NORETHINDRONE ACETATE 5 MG PO SCH (09:00)
[2021-12-02] MEDS ORDERED: Non-Formulary Item 1 EACH (Plecanatide [Trulance] 3 MG Tablet) PO SCH (09:00)
[2021-12-02 09:38] LABS: Reticulocyte Count 1.2 % (0.5-1.5)
[2021-12-02 09:59] LABS: Iron 12 ug/dL (50-170); Iron Binding Capacity, Total 216 mcg/dL (265-497)
[2021-12-02 13:07] LABS: Hemoglobin 8.3 g/dL (12.0-16.0)
[2021-12-02] MEDS: HYDROcodone/Acetaminophen 10/325 mg Tablet PO PRN ×2 (13:23→20:31)
[2021-12-02] MEDS: Ferrous Sulfate 325 MG TAB PO SCH (16:03)
[2021-12-02] MEDS: Amitriptyline HCl 10 MG TAB PO SCH (20:25)
[2021-12-02] MEDS: Baclofen 10 MG TAB PO SCH (20:25)
[2021-12-02] MEDS: Zolpidem Tartrate 5 MG TAB PO SCH (20:26)
[2021-12-02] MEDS: Pregabalin 50 MG CAP PO SCH (20:26)
[2021-12-03 05:55] LABS: #Eosinphils 0.2 thou/uL (0.0-0.7); #Lymphocytes 1.7 thou/uL (1.20-3.40); #Monocytes 0.6 thou/uL (0.11-0.59); #Neutrophils 4.2 thou/uL (1.40-6.50); %Basophils 0.5 % (0.0-1.0); %Eosinophils 2.4 % (0.0-10.0); %Lymphocytes 25.4 % (21.0-51.0); %Monocytes 8.4 % (0.0-10.0); %Neutrophils 63.4 % (42.0-75.0); Hemoglobin 8.1 g/dL (12.0-16.0); Mean Corpuscular HGB CONC 31.2 g/dL (32.0-36.0); Mean Corpuscular Hemoglobin 25.3 pg (27.0-31.0); Mean Platelet Volume 8.2 fL (7.4-10.4); Platelet Count 313 thou/uL (130-400); RBC Distribution Width 17.1 % (11.5-14.5); Red Blood Cell (RBC) Count 3.21 mill/uL (4.20-5.40); White Blood Cell (WBC) Count 6.6 thou/uL (4.8-10.8)
[2021-12-03] MEDS: Piperacillin/Tazobactam 3.375 GM in Sodium Chloride 0.9% 100 ML IVPB SCH (06:09)
[2021-12-03 06:16] LABS: Anion Gap 15 mmol/L (10-20); BUN (Urea Nitrogen) 7 mg/dL (7.0-18.7); Calc. Creatinine Clearance 0 mL/min (70-130); Carbon Dioxide 26 mmol/L (22-29); Chloride 102 mmol/L (98-107); Glucose 82 mg/dL (70-105); Potassium 4.8 mmol/L (3.5-5.1); Sodium 138 mmol/L (136-145)
[2021-12-03] MEDS: Senokot S 8.6-50 MG TAB PO SCH (07:54)
[2021-12-03] MEDS: Bupropion 150 MG XL TAB PO SCH (07:54)
[2021-12-03] MEDS: DULoxetine 60 MG CAP PO SCH (07:54)
[2021-12-03] MEDS: Trospium 20 MG TAB PO SCH (07:55)
[2021-12-03] MEDS: Aspirin Chewable 81 MG TAB PO SCH (07:55)
[2021-12-03] MEDS: Floranex 1 GM Packet PO SCH (07:55)
[2021-12-03] MEDS: Rivaroxaban 15 MG TAB PO SCH (07:55)
[2021-12-03] MEDS: Ferrous Sulfate 325 MG TAB PO SCH (07:55)
[2021-12-03] MEDS: Midodrine HCl 5 MG TAB PO SCH (07:55)
[2021-12-03] MEDS: Ondansetron PF 4 MG/2 ML Vial IVP PRN (08:07)
[2021-12-03 08:49] LABS: Vancomycin, Trough 5.9 ug/mL
[2021-12-03] MEDS ORDERED: FLU VACC QS2021-22(6MOS UP)/PF 60 MCG/0.5 ML SYRINGE IM ONE (09:00)
[2021-12-03 09:20] VITALS: BP 101/67; TEMP 98.7
== END 2021-12-03 10:54 | disposition home or self-care (01) | DRG 864 ==
LOC: ERS 19:10 → T4-A 23:07 → OBSVTOIN 11-30 16:55
PROVIDERS: ADMIT Student in an Organized Health Care Education/Training Program; ATTEND Internal Medicine
DX: R50.9 Fever, unspecified (principal); R65.10 Systemic inflammatory response syndrome (SIRS) of non-infectious origin without acute organ dysfunction; G82.20 Paraplegia, unspecified; E87.2 Acidosis; U09.9 Post COVID-19 condition, unspecified; Z20.822 Contact with and (suspected) exposure to COVID-19; F17.210 Nicotine dependence, cigarettes, uncomplicated; E87.6 Hypokalemia; D64.9 Anemia, unspecified; F32.A Depression, unspecified; K59.03 Drug induced constipation; T39.95XA Adverse effect of unspecified nonopioid analgesic, antipyretic and antirheumatic, initial encounter; N31.9 Neuromuscular dysfunction of bladder, unspecified; Z86.718 Personal history of other venous thrombosis and embolism; Z93.3 Colostomy status; Z88.1 Allergy status to other antibiotic agents; Z79.82 Long term (current) use of aspirin; Z79.899 Other long term (current) drug therapy; Z90.49 Acquired absence of other specified parts of digestive tract; Z87.440 Personal history of urinary (tract) infections; Z98.890 Other specified postprocedural states; Z79.01 Long term (current) use of anticoagulants; Z86.16 Personal history of COVID-19
CPT/HCPCS: 0240U; 36415; 71045; 71275; 74177; 80048; 80053; 80202; 81003; 81015; 81025; 82607; 82746; 83540; 83550; 83605; 83735; 84100; 85025; 85046; 86140; 87040; 87077; 87086; 87186; 93306; 96374; 96375; 96376; G0378; J1885; J2405; J2543; J3370; J3490; J7050; Q9967

== ENCOUNTER 2022-09-12 12:45 | Emergency (ER) | payer MEDICARE, OTHER ==
[2022-09-12] MEDS ORDERED: Morphine 4 MG/ML VIAL ONE (15:05)
== END 2022-09-12 16:20 | disposition home or self-care (01) ==
LOC: ERS 12:45
DX: S72.492A Other fracture of lower end of left femur, initial encounter for closed fracture (principal); F17.210 Nicotine dependence, cigarettes, uncomplicated; X50.9XXA Other and unspecified overexertion or strenuous movements or postures, initial encounter
CPT/HCPCS: 72170; 96372; J2270